=== PATIENT | female | born 1960 | race Two or more races ===

== ENCOUNTER 2023-05-27 09:19 | Emergency (ER) | payer MEDICAID, OTHER ==
[~2023-05-27] VITALS: Ht 162.6 cm; Wt 81.8 kg
[2023-05-27 09:47] VITALS: BP 159/84; PULSE 74; RESP 16; TEMP 98.4; O2SAT 100
[2023-05-27] MEDS ORDERED: ACET-1080 PO (10:15)
[2023-05-27 10:31] VITALS: PULSE 56
== END 2023-05-27 10:39 | disposition home or self-care (01) ==
LOC: EDBD 09:19 → ER 09:19
DX: S20.213A Contusion of bilateral front wall of thorax, initial encounter (principal); E11.9 Type 2 diabetes mellitus without complications; I10 Essential (primary) hypertension; V49.9XXA Car occupant (driver) (passenger) injured in unspecified traffic accident, initial encounter; Y93.89 Activity, other specified; Y92.89 Other specified places as the place of occurrence of the external cause; Y99.8 Other external cause status
CPT/HCPCS: 71046; 93005